=== PATIENT | male | born 1945 | race Caucasian/White ===

== ENCOUNTER 2017-02-24 14:13 | Inpatient (IN) | payer MEDICARE, BC ==
--- NOTE | 2017-02-24 14:18 | ED ---
General Adult HPI - General Stated complaint: CHEST PAIN Time Seen by Provider: 02/24/17 14:14 Source: patient - History of Present Illness Initial comments: 71-year-old male presenting with chest pain. Prehospital EKG showed inferior STEMI. rn labor delivery was notified. Upon arrival patient does complain of anterior chest pain, diaphoresis, nausea vomiting. No additional history is obtained. Patient is taken immediately to the [facility]. He stops in the ER for registration and confirmation of history. - Related Data Allergies Allergy/AdvReac Type Severity Reaction Status Date / Time No Known Allergies Allergy Verified 02/24/17 14:18 Review of Systems ROS Statement: Those systems with pertinent positive or pertinent negative responses have been documented in the HPI. ROS Other: All systems not noted in ROS Statement are negative. General Exam General appearance: alert, in distress ENT exam: Present: normal exam Respiratory exam: Present: normal lung sounds bilaterally. Absent: respiratory distress Cardiovascular Exam: Present: regular rate, normal rhythm EKG Findings - EKG Comments: EKG Findings:: EKG performed by EMS shows ST segment elevation in leads 23 and aVF, with reciprocal change in the precordium. Medical Decision Making - Medical Decision Making 71-year-old male with chest pain, EKG by EMS shows STEMI. Case is discussed with cardiology prior to arrival. EKG faxed from EMS is sent cardiology. rn labor delivery is activated prior to arrival. Patient stopped the ER for registration. He is taken immediately to the [facility]. No medications, laboratory studies or further evaluation treatment is given by the ER. Disposition Clinical Impression: STEMI (ST elevation myocardial infarction) Disposition: ADMITTED IP TO THIS HOSP Condition: Serious Referrals: None,Stated [Primary Care Provider] - 1-2 days Decision to Admit Reason: Admit from EC Decision Date: 02/24/17 Decision Time: 14:17
[2017-02-24] MEDS ORDERED: SODIUM CHLORIDE 0.9% 500 ML IV ONE (14:25)
[2017-02-24] MEDS ORDERED: SODIUM CHLORIDE 0.9% 1,000 ML IV ONE (14:25)
[2017-02-24] MEDS ORDERED: ASPIRIN 81 MG PO ONE (14:25)
[2017-02-24] MEDS ORDERED: MIDAZOLAM 2 MG/2 ML VIAL IV ONE (14:31)
[2017-02-24] MEDS ORDERED: LIDOCAINE 2% INJ 20 MG/ML SQ ONE (14:31)
[2017-02-24] MEDS: VERAPAMIL SYRINGE (5 MG/10 ML) INTRAARTER ONE ×2 (14:32→15:02)
[2017-02-24] MEDS ORDERED: BIVALIRUDIN BOLUS 250 MG/50 ML IV ONE (14:35)
[2017-02-24] MEDS ORDERED: BIVALIRUDIN 250 MG in SODIUM CHLORIDE 0.9% 50 ML IV ONE (14:37)
[2017-02-24] MEDS ORDERED: CLOPIDOGREL 75 MG TAB PO ONE ×2 (14:46→15:07)
[2017-02-24 14:51] LABS: Basophils % (A) 0 %; CH 31.1; CHCM 33.6; Eosinophils # (A) 0.2 k/uL (0-0.7); Eosinophils % (A) 2 %; HCT 43.1 % (39.0-53.0); HGB 14.8 gm/dL (13.0-17.5); Luc # (Auto) 0.16; Luc % (Auto) 1; Lymphocytes % (A) 15 %; MCHC 34.4 g/dL (31.0-37.0); Mean Platelet Volume 7.3; Monocytes # (A) 0.7 k/uL (0-1.0); Monocytes % (A) 5 %; Neutrophils # (A) 10.1 k/uL (1.3-7.7); Neutrophils % (A) 77 %; RBC 4.64 m/uL (4.30-5.90); RDW 13.4 % (11.5-15.5); WBC 13.2 k/uL (3.8-10.6); WBC (Perox) 12.69
[2017-02-24 14:59] LABS: Anion Gap 10 mmol/L; Blood Urea Nitrogen 14 mg/dL (9-20); Carbon Dioxide 20 mmol/L (22-30); Chloride 110 mmol/L (98-107); Non-African American GFR(MDRD) >60 (>60 ml/min/1.73 sqM); Potassium 4.1 mmol/L (3.5-5.1); Sodium 140 mmol/L (137-145)
[2017-02-24] MEDS ORDERED: IODIXANOL 320 MG/ML 100 ML INTRAARTER ONE (15:03)
[2017-02-24 15:08] LABS: INR 1.1 (<1.2); Prothrombin Time 10.7 sec (9.0-12.0)
[2017-02-24] MEDS ORDERED: ZOLPIDEM 5 MG TAB PO PRN (15:11)
[2017-02-24] MEDS ORDERED: MAG HYDROX/AL HYDROX/SIMETH 30 ML CUP PO PRN (15:11)
[2017-02-24] MEDS ORDERED: NITROGLYCERIN SL TABS 0.4 MG TAB SUBLINGUAL PRN (15:11)
[2017-02-24] MEDS ORDERED: RX INFO: IV CONTRAST WAS GIVEN 1 EACH MISC MISCELLANE PRN (15:11)
[2017-02-24] MEDS ORDERED: ATROPINE SULFATE 0.1 MG/ML 10ML SYRINGE IV PRN (15:11)
[2017-02-24] MEDS ORDERED: SODIUM CHLORIDE 0.9% 1,000 ML IV SCH (15:15)
[2017-02-24 15:25] LABS: Creatine Kinase MB 1.2 ng/mL (0.0-2.4)
--- NOTE | 2017-02-24 15:25 | P.CRDCN ---
History of Present Illness Consult date: 02/24/17 Chief complaint: Chest discomfort History of present illness: This is a pleasant 71-year-old gentleman with no significant past medical history but history of smoking presented to the emergency room complaining of chest discomfort. The patient was diagnosed with acute inferior ST elevation myocardial infarction. 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 The patient underwent successful stenting of the mid to distal RCA along with successful stenting of the mid RCA with a good angiographic results and without any complication. He does not have any residual disease involving the left coronary system. The procedure was performed from the right radial artery. The patient will be admitted to the intensive care unit. He would be on dual antiplatelet therapy and statin. I am holding the beta vijaya at this point in view of the bradycardia and heart rate in the 40s and 50s. Medications and Allergies Allergies Allergy/AdvReac Type Severity Reaction Status Date / Time No Known Allergies Allergy Verified 02/24/17 14:18 Physical Exam Vitals: Intake and Output 02/24/17 02/24/17 02/24/17 06:59 14:59 22:59 Intake Total 238 Balance 238 Intake: IV 238 Other: Weight 77.111 kg Patient Weight 02/25/17 06:59 Weight 77.111 kg - Constitutional General appearance: no acute distress - Respiratory Respiratory: bilateral: CTA - Cardiovascular Rhythm: regular Heart sounds: normal: S1, S2 Results 02/24/17 14:35 02/24/17 14:35 Coagulation 02/24/17 Range/Units 14:35 PT 10.7 (9.0-12.0) sec CBC 02/24/17 Range/Units 14:35 WBC 13.2 H (3.8-10.6) k/uL RBC 4.64 (4.30-5.90) m/uL Hgb 14.8 (13.0-17.5) gm/dL Hct 43.1 (39.0-53.0) % Plt Count 302 (150-450) k/uL Comprehensive Metabolic Panel 02/24/17 Range/Units 14:35 Sodium 140 (137-145) mmol/L Potassium 4.1 (3.5-5.1) mmol/L Chloride 110 H (98-107) mmol/L Carbon Dioxide 20 L (22-30) mmol/L BUN 14 (9-20) mg/dL Creatinine 0.99 (0.66-1.25) mg/dL Current Medications Generic Name Dose Route Start Last Admin Trade Name [place] PRN Reason Stop Dose Admin Al Hydroxide/Mg Hydroxide 30 ml 02/24/17 15:11 Maalox PO Q4HR PRN Heartburn Aspirin 325 mg 02/25/17 09:00 Aspirin PO DAILY MAGALY Atorvastatin Calcium 80 mg 02/24/17 21:00 Lipitor PO HS MAGALY Atropine Sulfate 0.5 mg 02/24/17 15:11 Atropine IV ONCE PRN Symptomatic Bradycardia Clopidogrel Bisulfate 75 mg 02/25/17 09:00 Plavix PO DAILY [facility] Sodium Chloride 1,000 mls @ 100 mls/hr 02/24/17 15:15 Saline 0.9% IV 02/24/17 21:16 .Q10H MAGALY Lisinopril 10 mg 02/25/17 09:00 Zestril PO DAILY [facility] Miscellaneous Information 1 each 02/24/17 15:11 Rx Info: Iv Contrast Was Given MISCELLANE 02/26/17 15:11 DAILY PRN Per Protocol Nitroglycerin 0.4 mg 02/24/17 15:11 Nitrostat SUBLINGUAL Q5M PRN Chest Pain Zolpidem Tartrate 5 mg 02/24/17 15:11 Ambien PO HS PRN Insomnia Intake and Output 02/24/17 02/24/17 02/24/17 06:59 14:59 22:59 Intake Total 238 Balance 238 Intake: IV 238 Other: Weight 77.111 kg Patient Weight 02/25/17 06:59 Weight 77.111 kg 02/24/17 14:35 02/24/17 14:35 Assessment and Plan Plan: This is a pleasant 71-year-old gentleman with history of smoking who presented to the hospital with chest discomfort and was diagnosed with acute inferior ST elevation myocardial infarction. He is status post angioplasty and stenting of the RCA with good angiographic results. He would be in the intensive care unit. He will be on dual antiplatelet therapy and statin. An echocardiogram will be performed to assess the LV function. We'll follow-up with him.
[2017-02-24 15:26] LABS: Glucose,Whole Blood 143 mg/dL (75-99)
[2017-02-24 15:38] LABS: Troponin I 0.249 ng/mL (0.000-0.034)
[2017-02-24] MEDS: ATORVASTATIN 80 MG TAB PO SCH (20:15)
[2017-02-25 06:02] LABS: Basophils # (A) 0.1 k/uL (0-0.2); Basophils % (A) 0 %; CH 32.2; CHCM 33.4; Eosinophils # (A) 0.1 k/uL (0-0.7); Eosinophils % (A) 1 %; HCT 44.3 % (39.0-53.0); HDW 2.28; HGB 14.1 gm/dL (13.0-17.5); Luc # (Auto) 0.21; Luc % (Auto) 2; Lymphocytes # (A) 2.9 k/uL (1.0-4.8); Lymphocytes % (A) 24 %; MCH 30.9 pg (25.0-35.0); MCHC 31.9 g/dL (31.0-37.0); MCV 96.8 fL (80.0-100.0); Mean Platelet Volume 7.8; Monocytes # (A) 0.9 k/uL (0-1.0); Monocytes % (A) 7 %; Neutrophils # (A) 7.9 k/uL (1.3-7.7); Neutrophils % (A) 65 %; RBC 4.57 m/uL (4.30-5.90); RDW 14.3 % (11.5-15.5); WBC 12.1 k/uL (3.8-10.6); WBC (Perox) 11.44
[2017-02-25 06:23] LABS: Anion Gap 7 mmol/L; Blood Urea Nitrogen 11 mg/dL (9-20); Calcium 9.1 mg/dL (8.4-10.2); Carbon Dioxide 21 mmol/L (22-30); Chloride 110 mmol/L (98-107); Glucose 111 mg/dL (74-99); Magnesium 1.9 mg/dL (1.6-2.3); Non-African American GFR(MDRD) >60 (>60 ml/min/1.73 sqM); Potassium 4.3 mmol/L (3.5-5.1); Sodium 138 mmol/L (137-145)
--- NOTE | 2017-02-25 06:30 | CC ---
CARDIAC CATHETERIZATION REPORT DATE OF SERVICE: 02/24/2017 PERFORMING PHYSICIAN: James Fitzgerald MD, agriculture laborer. PROCEDURE PERFORMED: 1. Selective right and left coronary angiogram. 2. Successful stenting of the mid to distal RCA using 3.5 x 23 mm Xience MARLENY with good angiographic results. 3. Successful stenting of the mid RCA using 3.5 x 18 mm Xience MARLENY with good angiographic results. 4. Left heart catheterization. INDICATION: This is a pleasant 71-year-old gentleman who presented to the hospital with chest discomfort and was diagnosed with acute inferior ST-elevation myocardial infarction. He is a smoker without any other comorbidities. APPROACH: Right radial artery. COMPLICATION: None. LEVEL OF SEDATION: Moderate with sedation length of 35 minutes. PROCEDURE DESCRIPTION: After obtaining an informed consent, the patient was brought to cardiac cathead operator. The right radial artery was cannulated using micropuncture technique, the micropuncture wire passed easily. Then I placed a 6-Haitian sheath in the right radial artery. Subsequently I did give the patient 2 mg of verapamil IA and after that I started Angiomax IV. I did selective right and left coronary angiogram using JR4 and JL3.5 catheters. After that, I did intervene on the RCA, please see a separate paragraph for that. Then I did left heart catheterization using 6-Haitian pigtail catheter. The procedure was completed without any complication. SELECTIVE CORONARY ANGIOGRAM: 1. The right coronary artery is a large caliber vessel and it is a dominant vessel. The RCA has tight eccentric lesion in the mid portion and distally is 100% occluded. 2. The left main is angiographically normal. It bifurcates into the left circumflex and left anterior descending artery. 3. The left circumflex is a moderate caliber vessel and it is a nondominant vessel. The circumflex has mild disease in the proximal portion and gives rise into a large OM branch which has mild disease in the midportion and then the circumflex continued after that as a small-caliber vessel in the AV groove. 4. The left anterior descending artery; the proximal LAD appeared to have mild disease only and gives rise into the first diagonal branch which seems to be angiographically normal. The mid LAD has mild disease only and gives rise into the second diagonal branch which seems to be angiographically normal. The LAD in the mid to distal and distal portion appeared to have mild disease only. HEMODYNAMICS: Left ventricle end-diastolic pressure was 24 mmHg and no gradient was identified across the aortic valve. PCI OF THE RCA: Anticoagulation was initiated using Angiomax. Subsequently, I took JR4 guide and the RCA was engaged. A whisper wire was used to wire the RCA and cross the acute total occlusion. After that I did balloon angioplasty using 3.0 x 12 mm balloon. Subsequently I deployed in the mid to distal RCA 3.5 x 23 mm Xience MARLENY where the stent was positioned under fluoroscopy guidance and deployed under 10 atmospheres for 20 seconds. For the lesion in the mid RCA, I deployed a 3.5 x 18 mm another Xience MARLENY where the stent again was positioned under fluoroscopy guidance and deployed under 14 atmospheres for 20 seconds. The following angiogram showed good angiographic results. CONCLUSION: 1. Acute inferior ST-elevation myocardial infarction. 2. 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 3. Normal left main coronary artery. 4. Mild disease involving the left circumflex coronary artery. 5. Mild disease involving the LAD system. 6. Successful stenting of the mid to distal and mid RCA as described above. POSTPROCEDURE MANAGEMENT: 1. Dual anti-platelet therapy. 2. Risk factor modifications. 3. Follow up with the patient. MMODL / IJN: [id number] /
[2017-02-25] MEDS ORDERED: Magnesium Replacement Protocol 1 EACH MISC MISCELLANE PRN (06:56)
[2017-02-25] MEDS: MAGNESIUM SULFATE-D5W PMX 1 GM in DEXTROSE/WATER 1 100ML.BAG IVPB SCH ×2 (07:48→08:36)
[2017-02-25] MEDS: CLOPIDOGREL 75 MG TAB PO SCH (08:36)
[2017-02-25] MEDS: ASPIRIN 325 MG TAB PO SCH (08:36)
[2017-02-25] MEDS ORDERED: LISINOPRIL 10 MG TAB PO SCH (09:00)
--- NOTE | 2017-02-25 10:11 | ECHOF ---
Referral Reason:stemi MEASUREMENTS -------- HEIGHT: 172.7 cm WEIGHT: 77.1 kg BP: 124/74 RVIDd: 2.6 cm (< 3.3) IVSd: 0.9 cm (0.6 - 1.1) LVIDd: 4.9 cm (3.9 - 5.3) LVPWd: 1.0 cm (0.6 - 1.1) IVSs: 1.3 cm LVIDs: 3.5 cm LVPWs: 1.3 cm LAESV Index (A-L): 20.33 ml/m Ao Diam: 2.6 cm (2.0 - 3.7) AV Cusp: 1.7 cm (1.5 - 2.6) LA Diam: 2.8 cm (2.7 - 3.8) MV EXCURSION: 20.130 mm (> 18.000) MV EF SLOPE: 112 mm/s (70 - 150) EPSS: 0.9 cm MV E Arturo: 0.62 m/s MV DecT: 185 ms MV A Arturo: 0.84 m/s MV E/A Ratio: 0.74 FINDINGS -------- Resting bradycardia (HR<60bpm). This was a technically adequate study. The left ventricular size is normal. There is mild concentric left ventricular hypertrophy. Overall left ventricular systolic function is mild-moderately impaired with, an EF between 40 - 45 %. Inferior Hypokinesis The right ventricle is normal in size and function. Normal LA size by volume 22+/-6 ml/m2. The right atrium is normal in size. Aortic valve is trileaflet and is mildly thickened. There is no evidence of aortic regurgitation. There is no evidence of aortic stenosis. The mitral valve leaflets are mildly thickened. There is trace to mild mitral regurgitation. Trace tricuspid regurgitation present. The pulmonic valve was not well visualized. The aortic root size is normal. Normal inferior vena cava with normal inspiratory collapse consistent with estimated right atrial pressure of 5 mmHg. The pericardium is normal. There is no pericardial effusion. CONCLUSIONS -------- 1. Resting bradycardia (HR<60bpm). 2. There is trace to mild mitral regurgitation. 3. Trace tricuspid regurgitation present. 4. The pulmonic valve was not well visualized. 5. The aortic root size is normal. 6. There is no pericardial effusion. 7. This was a technically adequate study. 8. The left ventricular size is normal. 9. There is mild concentric left ventricular hypertrophy. 10. Overall left ventricular systolic function is mild-moderately impaired with, an EF between 40 - 45 %. 11. Inferior Hypokinesis 12. Normal LA size by volume 22+/-6 ml/m2. 13. Aortic valve is trileaflet and is mildly thickened. 14. The mitral valve leaflets are mildly thickened. PROMOTIONAL MODEL: Rodney Rangel RDCS
[2017-02-25] MEDS ORDERED: ATROPINE SULFATE 0.1 MG/ML 10ML SYRINGE ONE (11:06)
[2017-02-25] MEDS ORDERED: SODIUM CHLORIDE 0.9% 200 ML IV ONE (11:36)
--- NOTE | 2017-02-25 13:10 | P.PN ---
Subjective Principal diagnosis: Acute inferior ST elevation [place] This is a pleasant 71-year-old gentleman with no significant past medical history but history of smoking presented to the emergency room complaining of chest discomfort. The patient was diagnosed with acute inferior ST elevation myocardial infarction. 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 The patient underwent successful stenting of the mid to distal RCA along with successful stenting of the mid RCA with a good angiographic results and without any complication. He does not have any residual disease involving the left coronary system. The procedure was performed from the right radial artery. On follow-up with the patient today on 02/25/2017, he is doing good and he denies having any chest pain or discomfort or difficulty breathing. He has been bradycardic with heart rate in the 40s. He is not on any AV mark vijaya agency beside that he is hypotensive with blood pressure systolic in the 90s. I am going to DC the lisinopril. We'll continue monitor the heart rate for additional 24 hours in the intensive care unit. I will obtain a TSH to rule out any hypothyroidism. The echocardiogram showed mildly impaired LV function Objective - Vital Signs Vital signs: Vital Signs Temp 98.1 F 02/25/17 12:00 Pulse 42 L 02/25/17 12:00 Resp 14 02/25/17 12:00 BP 85/54 02/25/17 12:00 Pulse Ox 99 02/25/17 12:00 Intake & Output 02/24/17 02/25/17 02/25/17 18:59 06:59 18:59 Intake Total 838 800 380 Output Total 200 1350 200 Balance 638 -550 180 Weight 77.111 kg 79 kg 79 kg Intake: IV 238 600 80 Sodium Chloride 0.9% 1, 600 80 000 ml @ 100 mls/hr IV . Q10H MAGALY Rx#:[id number] Intake, IV Titration 300 200 Amount Magnesium Sulfate-D5w Pmx 200 1 gm In Dextrose/Water 1 100ml.bag @ 100 mls/hr IVPB Q1H MAGALY Rx#: [id number] Sodium Chloride 0.9% 1, 300 000 ml @ 100 mls/hr IV . Q10H MAGALY Rx#:[id number] Oral 300 200 100 Output: Urine 200 1350 200 Other: Voiding Method Urinal # Voids 0 - Constitutional General appearance: Present: no acute distress - Respiratory Respiratory: bilateral: CTA - Cardiovascular Rhythm: regular Heart sounds: normal: S1, S2 - Labs CBC & Chem 7: 02/25/17 04:56 02/25/17 04:54 Labs: Abnormal Lab Results - Last 24 Hours (Table) 02/24/17 02/24/17 02/24/17 Range/Units 14:35 14:35 14:35 WBC 13.2 H (3.8-10.6) k/uL Neutrophils # 10.1 H (1.3-7.7) k/uL Chloride 110 H (98-107) mmol/L Carbon Dioxide 20 L (22-30) mmol/L Glucose (74-99) mg/dL POC Glucose (mg/dL) (75-99) mg/dL Troponin I 0.249 H* (0.000-0.034) ng/mL TSH (0.465-4.680) mIU/L 02/24/17 02/25/17 02/25/17 Range/Units 15:23 04:54 04:54 WBC (3.8-10.6) k/uL Neutrophils # (1.3-7.7) k/uL Chloride 110 H (98-107) mmol/L Carbon Dioxide 21 L (22-30) mmol/L Glucose 111 H (74-99) mg/dL POC Glucose (mg/dL) 143 H (75-99) mg/dL Troponin I (0.000-0.034) ng/mL TSH 0.218 L (0.465-4.680) mIU/L 02/25/17 Range/Units 04:56 WBC 12.1 H (3.8-10.6) k/uL Neutrophils # 7.9 H (1.3-7.7) k/uL Chloride (98-107) mmol/L Carbon Dioxide (22-30) mmol/L Glucose (74-99) mg/dL POC Glucose (mg/dL) (75-99) mg/dL Troponin I (0.000-0.034) ng/mL TSH (0.465-4.680) mIU/L Assessment and Plan Plan: This is a pleasant 71-year-old gentleman with history of smoking who presented to the hospital with chest discomfort and was diagnosed with acute inferior ST elevation myocardial infarction. He is status post angioplasty and stenting of the RCA with good angiographic results. Continue the current medical treatment was dual antiplatelet therapy and statin. Continue holding any AV mark vijaya agents and any hypertensive agents at this point in view of the low heart rate and low blood pressure. Keep the patient in the intensive care. For additional 24 hours. Obtain TSH.
[2017-02-25] MEDS: LEVOTHYROXINE 75 MCG TAB PO SCH (17:56)
[2017-02-25] MEDS: ATORVASTATIN 80 MG TAB PO SCH (21:20)
[2017-02-26 04:23] LABS: CH 32.1; CHCM 32.7; HCT 41.7 % (39.0-53.0); HDW 2.25; HGB 13.8 gm/dL (13.0-17.5); MCH 32.6 pg (25.0-35.0); MCV 98.8 fL (80.0-100.0); Mean Platelet Volume 7.9; RBC 4.22 m/uL (4.30-5.90); RDW 14.4 % (11.5-15.5); WBC 9.7 k/uL (3.8-10.6)
[2017-02-26 04:40] LABS: ALT 41 U/L (21-72); AST 96 U/L (17-59); Alkaline Phosphatase 69 U/L (38-126); Anion Gap 8 mmol/L; Blood Urea Nitrogen 10 mg/dL (9-20); Calcium 8.9 mg/dL (8.4-10.2); Carbon Dioxide 22 mmol/L (22-30); Chloride 108 mmol/L (98-107); Glucose 101 mg/dL (74-99); Magnesium 1.9 mg/dL (1.6-2.3); Non-African American GFR(MDRD) >60 (>60 ml/min/1.73 sqM); Phosphorous 2.9 mg/dL (2.5-4.5); Potassium 4.2 mmol/L (3.5-5.1); Sodium 138 mmol/L (137-145); Total Bilirubin 0.7 mg/dL (0.2-1.3); Total Protein 5.9 g/dL (6.3-8.2)
[2017-02-26] MEDS: MAGNESIUM SULFATE-D5W PMX 1 GM in DEXTROSE/WATER 1 100ML.BAG IVPB SCH ×2 (05:54→07:55)
[2017-02-26] MEDS: LEVOTHYROXINE 75 MCG TAB PO SCH (05:56)
[2017-02-26] MEDS: ASPIRIN 325 MG TAB PO SCH (08:36)
[2017-02-26] MEDS: CLOPIDOGREL 75 MG TAB PO SCH (08:36)
[2017-02-26 12:25] VITALS: TEMP 97.6
--- NOTE | 2017-02-26 12:59 | P.DS ---
Providers Date of admission: 02/24/17 14:18 Attending physician: James Fitzgerald Consults: 02/24/17 15:11 Consult Physician Routine Consulting Provider: [facility] Consult Reason/Comments: Post Interventional patient Do you want consulting provider notified?: Already Contacted Primary care physician: Stated None Hospital Course: This is a pleasant 71-year-old gentleman with prior history of smoking presented to the hospital with chest discomfort and was diagnosed with acute inferior ST elevation myocardial infarction. He underwent successful stenting of the RCA with a good angiographic results and without any complication. He denies having any chest pain or discomfort or difficulty breathing. He has been maintaining normal sinus mechanism with normal heart rate and blood pressure. The patient is going to be discharged home on dual antiplatelet therapy as well as a statin. I'll follow-up with the patient in a week in the office. Patient Condition at Discharge: Serious Plan - Discharge Summary New Discharge Prescriptions: New Aspirin 325 mg PO DAILY #90 tab Atorvastatin [Lipitor] 80 mg PO HS #90 tab Clopidogrel [Plavix] 75 mg PO DAILY #90 tab Continue Levothyroxine Sodium [Synthroid] 150 mcg PO DAILY Discharge Medication List Levothyroxine Sodium [Synthroid] 150 mcg PO DAILY 02/24/17 [History] Aspirin 325 mg PO DAILY #90 tab 02/26/17 [Rx] Atorvastatin [Lipitor] 80 mg PO HS #90 tab 02/26/17 [Rx] Clopidogrel [Plavix] 75 mg PO DAILY #90 tab 02/26/17 [Rx] Follow up Appointment(s)/Referral(s): None,Stated [Primary Care Provider] - 1-2 days James Fitzgerald MD [STAFF PHYSICIAN] - 1 Week
[2017-02-26 13:24] VITALS: BP 122/68; PULSE 48; RESP 11
== END 2017-02-26 13:30 | disposition home or self-care (01) | DRG 247 ==
LOC: EC 14:13 → 6ICU 14:18
PROVIDERS: ADMIT Internal Medicine Interventional Cardiology; ATTEND Internal Medicine Interventional Cardiology
PROC: B211YZZ Fluoroscopy of Multiple Coronary Arteries using Other Contrast (ICD-10-PCS; 2017-02-24)
PROC: 027035Z Dilation of Coronary Artery, One Artery with Two Drug-eluting Intraluminal Devices, Percutaneous Approach (ICD-10-PCS; principal; 2017-02-24 14:16)
PROC: 4A023N7 Measurement of Cardiac Sampling and Pressure, Left Heart, Percutaneous Approach (ICD-10-PCS; 2017-02-24 14:16)
DX: I21.19 ST elevation (STEMI) myocardial infarction involving other coronary artery of inferior wall (principal); F17.200 Nicotine dependence, unspecified, uncomplicated; I25.10 Atherosclerotic heart disease of native coronary artery without angina pectoris; Z79.899 Other long term (current) drug therapy
CPT/HCPCS: 80048; 80051; 80053; 82550; 82553; 82565; 83735; 84100; 84443; 84484; 84520; 85025; 85027; 85610; 93306; 93458

== ENCOUNTER 2017-05-02 12:44 | Emergency (ER) | payer MEDICARE, BC ==
[2017-05-02] MEDS ORDERED: RX INFO: IV CONTRAST WAS GIVEN 1 EACH MISC MISCELLANE PRN (13:51)
[2017-05-02] MEDS ORDERED: HYDROmorphone 1 MG/ML 1 ML SYRINGE IVP STA ×2 (13:51→16:26)
--- NOTE | 2017-05-02 13:58 | ED ---
General Adult HPI - General Chief complaint: Extremity Injury, Lower Stated complaint: Right leg pain Time Seen by Provider: 05/02/17 13:30 Source: patient, family, RN notes reviewed Mode of arrival: wheelchair Limitations: no limitations - History of Present Illness Initial comments: Patient is a pleasant 72-year-old male presenting to the emergency Department with right inguinal pain. Symptoms have progressed over the past 3-4 weeks. Discomfort is greatly increased with flexion at the right hip. Patient is having some lower back discomfort however stated this discomfort started first. Patient does not believe it is his lower back causing these problems. No weakness. Patient did go to his landscape management technician Wednesday and had ultrasound done at that time. Patient is unclear if it was arterial or venous ultrasound or both. Patient refuses repeat ultrasound at this time. Patient has no lower leg pain. No leg swelling. No rash. No weakness. No abdominal pain. No genital pain. - Related Data Home Medications Medication Instructions Recorded Confirmed Levothyroxine Sodium [Synthroid] 150 mcg PO DAILY 02/24/17 05/02/17 Previous Rx's Medication Instructions Recorded Aspirin 325 mg PO DAILY #90 tab 02/26/17 Atorvastatin [Lipitor] 80 mg PO HS #90 tab 02/26/17 Clopidogrel [Plavix] 75 mg PO DAILY #90 tab 02/26/17 Hydrocodone/Acetaminophen [[place] 2 each PO Q6HR PRN #20 tab 05/02/17 5-325] Allergies Allergy/AdvReac Type Severity Reaction Status Date / Time No Known Allergies Allergy Verified 05/02/17 13:18 Review of Systems ROS Statement: Those systems with pertinent positive or pertinent negative responses have been documented in the HPI. ROS Other: All systems not noted in ROS Statement are negative. Constitutional: Denies: fever Eyes: Denies: eye pain ENT: Denies: ear pain Respiratory: Denies: cough Cardiovascular: Denies: chest pain Endocrine: Denies: fatigue Gastrointestinal: Denies: abdominal pain Genitourinary: Denies: dysuria, testicular pain, testicular mass Musculoskeletal: Reports: back pain Skin: Denies: rash Neurological: Denies: weakness Past Medical History Past Medical History: Cancer, COPD, Hyperlipidemia, Myocardial Infarction ([place]), Thyroid Disorder Additional Past Medical History / Comment(s): PAST TOOK MEDS FOR CHOLESTEROL, PROSTATE CA(SX) History of Any Multi-Drug Resistant Organisms: None Reported Past Surgical History: Heart Catheterization With Stent, Prostate Surgery Additional Past Surgical History / Comment(s): 2 stents Past Anesthesia/Blood Transfusion Reactions: No Reported Reaction Past Psychological History: No Psychological Hx Reported Smoking Status: Current every day smoker Past Alcohol Use History: None Reported Past Drug Use History: None Reported - Past Family History Father Family Medical History: Cancer Additional Family Medical History / Comment(s): LUNG CANCER Mother Family Medical History: Cancer Additional Family Medical History / Comment(s): LUNG CANCER General Exam Limitations: no limitations General appearance: alert, in no apparent distress Head exam: Present: atraumatic Eye exam: Present: normal appearance, PERRL ENT exam: Present: normal oropharynx Neck exam: Present: normal inspection Respiratory exam: Present: normal lung sounds bilaterally Cardiovascular Exam: Present: regular rate, normal rhythm Expanded Peripheral pulses: 2+: Posterior Tibialis (R), Posterior Tibialis (L), Dorsalis Pedis (R), Dorsalis Pedis (L) GI/Abdominal exam: Present: soft, normal bowel sounds, other (No significant tenderness in the inguinal region). Absent: distended, tenderness, guarding, rebound, rigid, pulsatile mass, hernia exam: Present: normal inspection. Absent: testicular tenderness, scrotal swelling Extremities exam: Present: tenderness (Minimal tenderness just below the inguinal region without swelling or erythema.). Absent: pedal edema, calf tenderness Back exam: Present: normal inspection. Absent: tenderness Neurological exam: Present: alert Psychiatric exam: Present: normal affect, normal mood Skin exam: Present: normal color Course Vital Signs 05/02/17 05/02/17 12:47 15:48 Temperature 98.2 F 97.9 F Pulse Rate 70 56 L Respiratory 18 16 Rate Blood Pressure 151/73 124/75 O2 Sat by Pulse 98 97 Oximetry Medical Decision Making - Medical Decision Making Patient reexamined and resting comfortably in bed. Patient states he still has discomfort however the medication has dulled the pain. Patient is updated on results and need for follow-up. Case was discussed in detail with Dr. Sepulveda, who will follow-up with patient and recommends he call tomorrow. - Lab Data Result diagrams: 05/02/17 14:34 05/02/17 14:34 Lab Results 11/26/17 11/26/17 11/26/17 Range/Units 14:30 14:34 14:34 WBC 8.2 (3.8-10.6) k/uL RBC 4.56 (4.30-5.90) m/uL Hgb 14.1 (13.0-17.5) gm/dL Hct 43.2 (39.0-53.0) % MCV 94.8 (80.0-100.0) fL MCH 30.9 (25.0-35.0) pg MCHC 32.6 (31.0-37.0) g/dL RDW 14.2 (11.5-15.5) % Plt Count 352 (150-450) k/uL Neutrophils % 72 % Lymphocytes % 18 % Monocytes % 6 % Eosinophils % 4 % Basophils % 0 % Neutrophils # 5.9 (1.3-7.7) k/uL Lymphocytes # 1.5 (1.0-4.8) k/uL Monocytes # 0.5 (0-1.0) k/uL Eosinophils # 0.3 (0-0.7) k/uL Basophils # 0.0 (0-0.2) k/uL PT (9.0-12.0) sec INR (<1.2) APTT (22.0-30.0) sec Sodium 140 (137-145) mmol/L Potassium 4.8 (3.5-5.1) mmol/L Chloride 107 (98-107) mmol/L Carbon Dioxide 24 (22-30) mmol/L Anion Gap 9 mmol/L BUN 14 (9-20) mg/dL Creatinine 0.84 (0.66-1.25) mg/dL Est GFR (MDRD) Af Amer >60 (>60 ml/min/1.73 sqM) Est GFR (MDRD) Non-Af >60 (>60 ml/min/1.73 sqM) Glucose 156 H (74-99) mg/dL Calcium 9.9 (8.4-10.2) mg/dL Total Bilirubin 0.5 (0.2-1.3) mg/dL AST 30 (17-59) U/L ALT 36 (21-72) U/L Alkaline Phosphatase 82 (38-126) U/L Total Protein 7.1 (6.3-8.2) g/dL Albumin 3.9 (3.5-5.0) g/dL Urine Color Yellow Urine Appearance Clear (Clear) Urine pH 5.5 (5.0-8.0) Ur Specific [place] 1.007 (1.001-1.035) Urine Protein Negative (Negative) Urine Glucose (UA) Negative (Negative) Urine Ketones Negative (Negative) Urine Blood Negative (Negative) Urine Nitrite Negative (Negative) Urine Bilirubin Negative (Negative) Urine Urobilinogen <2.0 (<2.0) mg/dL Ur Leukocyte Esterase Negative (Negative) 05/02/17 Range/Units 14:34 WBC (3.8-10.6) k/uL RBC (4.30-5.90) m/uL Hgb (13.0-17.5) gm/dL Hct (39.0-53.0) % MCV (80.0-100.0) fL MCH (25.0-35.0) pg MCHC (31.0-37.0) g/dL RDW (11.5-15.5) % Plt Count (150-450) k/uL Neutrophils % % Lymphocytes % % Monocytes % % Eosinophils % % Basophils % % Neutrophils # (1.3-7.7) k/uL Lymphocytes # (1.0-4.8) k/uL Monocytes # (0-1.0) k/uL Eosinophils # (0-0.7) k/uL Basophils # (0-0.2) k/uL PT 10.3 (9.0-12.0) sec INR 1.0 (<1.2) APTT 19.1 L (22.0-30.0) sec Sodium (137-145) mmol/L Potassium (3.5-5.1) mmol/L Chloride (98-107) mmol/L Carbon Dioxide (22-30) mmol/L Anion Gap mmol/L BUN (9-20) mg/dL Creatinine (0.66-1.25) mg/dL Est GFR (MDRD) Af Amer (>60 ml/min/1.73 sqM) Est GFR (MDRD) Non-Af (>60 ml/min/1.73 sqM) Glucose (74-99) mg/dL Calcium (8.4-10.2) mg/dL Total Bilirubin (0.2-1.3) mg/dL AST (17-59) U/L ALT (21-72) U/L Alkaline Phosphatase (38-126) U/L Total Protein (6.3-8.2) g/dL Albumin (3.5-5.0) g/dL Urine Color Urine Appearance (Clear) Urine pH (5.0-8.0) Ur Specific [place] (1.001-1.035) Urine Protein (Negative) Urine Glucose (UA) (Negative) Urine Ketones (Negative) Urine Blood (Negative) Urine Nitrite (Negative) Urine Bilirubin (Negative) Urine Urobilinogen (<2.0) mg/dL Ur Leukocyte Esterase (Negative) - Radiology Data Radiology results: report reviewed (Computed tomography scan of the abdomen and pelvis shows left adrenal mass. Several peritoneal lesions including 2.4 cm lesion right psoas muscle.) Disposition Clinical Impression: Psoas mass Disposition: HOME SELF-CARE Condition: Stable Additional Instructions: Please follow-up with oncology in the next day or 2 for recheck. Return for fever, weakness, uncontrolled pain, worsening symptoms or other concerns. Prescriptions: Hydrocodone/Acetaminophen [[place] 5-325] 2 each PO Q6HR PRN #20 tab PRN Reason: Pain Referrals: Srinivas Yanes MD [Primary Care Provider] - 1-2 days Noble Sepulveda MD [STAFF PHYSICIAN] - 1-2 days Time of Disposition: 16:26
[2017-05-02 14:48] LABS: Basophils % (A) 0 %; CH 30.7; CHCM 32.5; Eosinophils # (A) 0.3 k/uL (0-0.7); Eosinophils % (A) 4 %; HCT 43.2 % (39.0-53.0); HGB 14.1 gm/dL (13.0-17.5); Luc # (Auto) 0.05; Luc % (Auto) 1; Lymphocytes # (A) 1.5 k/uL (1.0-4.8); Lymphocytes % (A) 18 %; MCH 30.9 pg (25.0-35.0); MCHC 32.6 g/dL (31.0-37.0); MCV 94.8 fL (80.0-100.0); Mean Platelet Volume 7.5; Monocytes # (A) 0.5 k/uL (0-1.0); Monocytes % (A) 6 %; Neutrophils # (A) 5.9 k/uL (1.3-7.7); Neutrophils % (A) 72 %; RBC 4.56 m/uL (4.30-5.90); RDW 14.2 % (11.5-15.5); WBC 8.2 k/uL (3.8-10.6); WBC (Perox) 8.26
[2017-05-02 14:50] LABS: Appearance,Urine Clear (Clear); Bilirubin,Urine Negative (Negative); Glucose,Urine (UA) Negative (Negative); Ketones,Urine Negative (Negative); Leukocyte Esterase,Urine Negative (Negative); Nitrite,Urine Negative (Negative); PH, Urine 5.5 (5.0-8.0); Protein,Urine Negative (Negative); Specific Gravity,Urine 1.007 (1.001-1.035); UA Billing (MACRO vs. MICRO) CHEM; Urobilinogen,Urine <2.0 mg/dL (<2.0)
[2017-05-02 15:01] LABS: ALT 36 U/L (21-72); AST 30 U/L (17-59); Alkaline Phosphatase 82 U/L (38-126); Anion Gap 9 mmol/L; Blood Urea Nitrogen 14 mg/dL (9-20); Calcium 9.9 mg/dL (8.4-10.2); Carbon Dioxide 24 mmol/L (22-30); Chloride 107 mmol/L (98-107); Glucose 156 mg/dL (74-99); Non-African American GFR(MDRD) >60 (>60 ml/min/1.73 sqM); Sodium 140 mmol/L (137-145); Total Bilirubin 0.5 mg/dL (0.2-1.3); Total Protein 7.1 g/dL (6.3-8.2)
[2017-05-02 15:02] LABS: Prothrombin Time 10.3 sec (9.0-12.0)
[2017-05-02 15:06] LABS: Potassium 4.8 mmol/L (3.5-5.1)
[2017-05-02 15:32] LABS: Partial Thromboplastin Time 19.1 sec (22.0-30.0)
[2017-05-02 15:49] VITALS: PULSE 56; TEMP 97.9
--- NOTE | 2017-05-02 16:13 | CT ---
EXAMINATION TYPE: CT abdomen pelvis w con DATE OF EXAM: 05/02/2017 COMPARISON: NONE HISTORY: Rt groin pain CT DLP: 613.8 mGycm CONTRAST: CT scan of the abdomen and pelvis is performed without Oral Contrast and with IV Contrast, patient in jected with 100 mL of Omnipaque 300. FINDINGS: LUNG BASES-: No visible nodule. No infiltrate. LIVER/GB: No calcified gallstones. No space occupying hepatic lesion. Biliary tree is of normal ca liber. PANCREAS: No inflammation. No distinct mass. SPLEEN: No splenic enlargement. No lesion seen. ADRENALS: Nonspecific Left adrenal mass measuring 3.3 cm in greatest dimension. Adenoma versus metast atic lesion. Nodular thickening right adrenal gland. 1. KIDNEYS/BLADDER: No hydronephrosis. No nephrolithiasis. No disctinct renal mass. Urinary bladd er grossly unremarkable. BOWEL: Normal appendix. Normal bowel caliber. No inflammation. GENITAL ORGANS: No gross abnormality. LYMPH NODES: No greater than 1cm abdominal or pelvic lymph nodes are appreciated. AORTA: No significant abnormality. OSSEOUS STRUCTURES: No significant abnormality is seen. OTHER: 2.4 cm complex lesion adjacent to the right psoas muscle at its lateral margin. Additional sim ilar morphology lesion measuring 1.3 cm along the peritoneal surface of the posterolateral abdominal wall axial image 35. 1.4 cm lesion adjacent to the splenic vein near the portal confluence image 24. Additional 5 mm lesion adjacent to the right psoas image 45 additional. Additional 5.3 mm nodular den sity adjacent to the right kidney. IMPRESSION: 1. Findings felt to reflect metastatic disease of uncertain origin with left adrenal mass as well as several peritoneal lesions seen as discussed above.
[2017-05-02] MEDS ORDERED: HYDROmorphone 2 MG/ML 1 ML SYRINGE IVP STA (16:29)
[2017-05-02 17:07] VITALS: BP 121/69; RESP 18
== END 2017-05-02 17:06 | disposition home or self-care (01) ==
LOC: EC 12:44
DX: K68.9 Other disorders of retroperitoneum (principal); E07.9 Disorder of thyroid, unspecified; F17.200 Nicotine dependence, unspecified, uncomplicated; Z85.46 Personal history of malignant neoplasm of prostate; Z53.20 Procedure and treatment not carried out because of patient's decision for unspecified reasons; Z79.899 Other long term (current) drug therapy
CPT/HCPCS: 36415; 80053; 85025; 85610; 85730; 81003; 74177; 99284; 96374; 96376; J1170 ×2; Q9967

== ENCOUNTER → 2017-06-17 | Outpatient (CLI) | payer MEDICARE ==
--- NOTE | 2017-06-17 16:41 | US ---
EXAMINATION TYPE: US venous doppler duplex LE DATE OF EXAM: 06/17/2017 3:46 PM COMPARISON: NONE CLINICAL HISTORY: M79.662 Pain, R22.42 Swelling. Just diagnosed with stage 4 colon CA. SIDE PERFORMED: Bilateral TECHNIQUE: The lower extremity deep venous system is examined utilizing real time linear array sonog sherif with graded compression, doppler sonography and color-flow sonography. VESSELS IMAGED: External Iliac Vein (EIV) Common Femoral Vein Deep Femoral Vein Greater Saphenous Vein * Femoral Vein Popliteal Vein Small Saphenous Vein * Proximal Calf Veins (* superficial vessels) Right Leg: Thickened choudhary noted behind valves at upper right Femoral Vein and at one of two calf ve ins; normal compression and patency of right leg Deep Veins is documented. Left Leg: Negative for DVT Tech findings called to Dr Sepulveda at exam's end. IMPRESSION: 1. No evidence for acute DVT at this time. 2. Chronic DVT right lower extremity is difficult to exclude.
== END | disposition home or self-care (01) ==
LOC: RADUSWWP 15:36
PROVIDERS: ATTEND Internal Medicine Hematology & Oncology
DX: I82.501 Chronic embolism and thrombosis of unspecified deep veins of right lower extremity (principal)
CPT/HCPCS: 93970

== ENCOUNTER → 2017-06-19 | Outpatient (CLI) | payer MEDICARE ==
--- NOTE | 2017-06-20 14:19 | PE ---
Nuclear medicine PET/CT HISTORY: Colon cancer, C 18.9, initial, remote history prostate cancer Patient received 13.7 mCi F-18 FDG intravenously in delayed scanning was performed from skull base to the mid thighs. Localization and attenuation correction CT scan was performed. Correlation to CT chest 05/19/2017, CT abdomen pelvis 05/02/2017 Neck and chest: Within the posterior soft tissues, paraspinal musculature and subcutaneous fat small foci of hypermetabolic uptake are noted, no definite associated mass. Supraclavicular region on the l eft shows a focus of hypermetabolic uptake corresponding to probable lymph node. Left hilar adenopath y shows associated hypermetabolic uptake. There is no pleural or pericardial effusion. Abdomen pelvis: There are foci of hypermetabolic uptake within the liver, corresponding mass is not i dentified with certainty. Bilateral adrenal glands are enlarged and show associated hypermetabolic up take. Uptake within the transverse colon is nonspecific. There is a soft tissue mass in the right mando ac fossa measuring 3.6 x 3.4 cm with associated hypermetabolic uptake. Posterior to the right psoas o n the right on axial image 189 there is also a small focus of metabolic uptake, soft tissue masses 1 cm. Similarly posterior to the lower pole of the left kidney a focus of hypermetabolic uptake is pres ent, there is associated soft tissue mass measuring 2.5 cm. Osseous structures: The left femoral head shows multiple lytic foci, there is associated hypermetabol ic uptake present, the ischium posteriorly also shows a lytic focus with associated uptake, large sof t tissue mass along the left pelvic sidewall causing some erosion of the ischium with associated hype rmetabolic uptake, soft tissue mass measures approximately 4.9 x 3.8 cm. Left humerus shows a sizable focus of abnormal hypermetabolic uptake. The posterior left fourth rib shows a lytic lesion with hyp ermetabolic uptake. Proximal right femur also shows hypermetabolic uptake and lytic lesion compatible with metastasis at its posterior medial cortex, soft tissue mass measuring approximately 3 cm. Small er left femoral metastatic focus is present axial image 281. IMPRESSION: Liver, bone, soft tissue and lung and adrenal metastases are favored.
== END | disposition home or self-care (01) ==
LOC: RADPETMAIN 12:34
PROVIDERS: ATTEND Internal Medicine Hematology & Oncology
DX: C18.9 Malignant neoplasm of colon, unspecified (principal)
CPT/HCPCS: 78815; A9552